=== PATIENT | female | born 1945 | race Caucasian/White ===

== ENCOUNTER 2016-07-19 09:10 | Outpatient (CLI) | payer MEDICARE | END 2016-07-19 09:11 | disposition home or self-care (01) | DX: Z12.31 Encounter for screening mammogram for malignant neoplasm of breast (principal); Z85.3 Personal history of malignant neoplasm of breast; Z90.12 Acquired absence of left breast and nipple ==

== ENCOUNTER 2016-07-19 09:11 | Outpatient (CLI) | payer MEDICARE | END 2016-07-19 09:12 | disposition home or self-care (01) | DX: Z13.820 Encounter for screening for osteoporosis (principal); M81.0 Age-related osteoporosis without current pathological fracture; N95.8 Other specified menopausal and perimenopausal disorders ==

== ENCOUNTER 2017-07-24 16:11 | Outpatient (CLI) | payer MEDICARE ==
--- NOTE | 2017-07-25 13:42 | Mammography Report ---
SCREENING MAMMOGRAM: 07/24/2017 CLINICAL INDICATION: A 71-year-old with personal history of left breast cancer , status post mastectomy, history of late childbearing, for screening. TECHNIQUE: Right CC and MLO views were obtained. COMPARISON: 06/2016, 05/2015/, 05/2014, 05/2013 FINDINGS: The right breast again demonstrates scattered fibroglandular densities. No suspicious masses, clustered microcalcifications, or regions of architectural distortion are identified. IMPRESSION: NEGATIVE EXAMINATION. RECOMMENDATION: Routine annual screening unless otherwise clinically indicated. BIRADS CATEGORY 1-NEGATIVE. STANDARD QUALIFYING STATEMENTS: 1. This examination was reviewed with the aid of Computer-Aided Detection (CAD) . 2. A negative or benign imaging report should not delay biopsy if clinically suspicious findings are present. Consider surgical consultation if warranted. More than 5 % of cancers are not identified by imaging. 3. Dense breasts may obscure an underlying neoplasm. TD: 07/25/2017 13:41 SIRISHA
== END 2017-07-24 16:12 | disposition home or self-care (01) ==
LOC: DI 16:11
PROVIDERS: ATTEND Internal Medicine
DX: Z12.31 Encounter for screening mammogram for malignant neoplasm of breast (principal); Z85.3 Personal history of malignant neoplasm of breast; Z90.12 Acquired absence of left breast and nipple

== ENCOUNTER 2018-01-27 11:44 | Outpatient (CLI) | payer MEDICARE ==
--- NOTE | 2018-01-27 14:42 | XRAY Report ---
Reason: LEFT HIP PAIN,OSTEOPOROSIS Procedure Date: 01/27/2018 Accession Number: [id number] / [id number] Procedure: XR - Hips 2V BILAT CPT Code: FULL RESULT: EXAM: BILATERAL HIP RADIOGRAPHY EXAM DATE: 01/27/2018 12:02 PM. CLINICAL HISTORY: Left hip pain, osteoporosis. COMPARISON: None. TECHNIQUE: 2 views each. FINDINGS: Bones: Normal. No fractures or bone lesion. Right Hip: Normal. No dislocation. Medial greater than superior hip joint space narrowing, moderate. Left Hip: Normal. No dislocation. Medial greater than superior hip joint space narrowing, moderate. Soft Tissues: Normal. No soft tissue swelling. IMPRESSION: Bilateral moderate degenerative joint disease right greater than left. RADIA
== END 2018-01-27 11:45 | disposition home or self-care (01) ==
LOC: DI 11:44
PROVIDERS: ATTEND Nurse Practitioner Family
DX: M16.0 Bilateral primary osteoarthritis of hip (principal)
CPT/HCPCS: 73521

== ENCOUNTER 2018-06-19 10:43 | Outpatient (CLI) | payer MEDICARE ==
--- NOTE | 2018-06-19 13:22 | XRAY Report ---
Reason: CLOSED FRACTRE PROX HUMERUS,GREATER TRUBEROSIT LT Procedure Date: 06/19/2018 Accession Number: [id number] / [id number] Procedure: XR - Shoulder 2 View LT CPT Code: FULL RESULT: EXAM: LEFT SHOULDER RADIOGRAPHY EXAM DATE: 06/19/2018 11:12 AM. CLINICAL HISTORY: Left shoulder pain. COMPARISON: XR SHOULDER LEFT COMPLETE 06/11/2018 9:06 PM. TECHNIQUE: 2 views. FINDINGS: Bones: As before, mildly displaced greater tuberosity fracture of the humeral head is unchanged. The remainder osseous structures are intact. Joints: Minimal degenerative changes are seen. Normal alignment. Soft tissues: The visualized hemithorax is unremarkable. No soft tissue swelling. IMPRESSION: No interval change in mildly displaced greater tuberosity fracture of the humeral head. RADIA
== END 2018-06-19 10:44 | disposition home or self-care (01) ==
LOC: DI 10:43
PROVIDERS: ATTEND Internal Medicine
DX: S42.255D Nondisplaced fracture of greater tuberosity of left humerus, subsequent encounter for fracture with routine healing (principal)

== ENCOUNTER 2018-09-29 10:10 | Outpatient (CLI) | payer MEDICARE ==
--- NOTE | 2018-09-29 12:20 | Mammography Report ---
Reason: ROUTINE MAMMOGRAM Procedure Date: 09/29/2018 Accession Number: [id number] / [id number] Procedure: [facility] - Screening Mammo Right w/Waqas CPT Code: FULL RESULT: EXAM: Screening Mammo Right w/Waqas DATE: 09/29/2018 10:49 AM CLINICAL HISTORY: Status post left mastectomy for routine right screening TECHNIQUE: (R) - Right CC and MLO views were obtained. COMPARISON: 05/30/2014, 06/07/2015, 07/19/2016 and 07/24/2017 FINDINGS: There is scattered fibroglandular density in the right breast. No significant interval change. There are no suspicious masses, calcifications, or areas of distortion. IMPRESSION: Negative examination. BI-RADS category 1. Right breast. RECOMMENDATION: (ANNUAL) - Recommend routine annual screening mammography. BI-RADS CATEGORY: (1) - Negative. STANDARD QUALIFYING STATEMENTS: 1. This examination was not reviewed with the aid of Computer-Aided Detection (CAD). 2. A negative or benign imaging report should not preclude biopsy if clinically suspicious findings are present. 3. Dense breasts may obscure an underlying neoplasm. 4. This examination was reviewed with the aid of 3D breast imaging (tomosynthesis).
== END 2018-09-29 10:11 | disposition home or self-care (01) ==
LOC: DI 10:10
DX: Z12.31 Encounter for screening mammogram for malignant neoplasm of breast (principal); Z90.12 Acquired absence of left breast and nipple
CPT/HCPCS: 77063

== ENCOUNTER 2019-09-22 11:30 | Outpatient (CLI) | payer MEDICARE ==
--- NOTE | 2019-09-22 13:56 | XRAY Report ---
PROCEDURE: Knee 3 View RT INDICATIONS: PAIN IN RIGHT KNEE TECHNIQUE: 3 views of the right knee(s) were acquired. COMPARISON: None. FINDINGS: Bones: No fractures or dislocations but there is a mild to moderate degree of medial compartment linden nt space narrowing on the frontal view, and moderately severe lateral facet patellofemoral joint oste oarthritic joint space narrowing also.. No suspicious bony lesions. Soft tissues: No joint effusion. No suspicious soft tissue calcifications. IMPRESSION: No trauma found. Medial compartment mild to moderate degenerative knee joint osteoarthri tis, moderately severe lateral facet patellofemoral joint knee joint osteoarthritis. Reviewed by: Tito Swartz MD on 09/22/2019 1:55 PM PDT Approved by: Tito Swartz MD on 09/22/2019 1:55 PM PDT Station ID: [id number]
== END 2019-09-22 11:31 | disposition home or self-care (01) ==
LOC: DI 11:30
PROVIDERS: ATTEND Nurse Practitioner Family
DX: M17.11 Unilateral primary osteoarthritis, right knee (principal)

== ENCOUNTER 2020-06-08 09:28 | Outpatient (CLI) | payer MEDICARE ==
[2020-06-08 16:23] LABS: BASOPHILS # (AUTO) 0.1 10^3/uL (0.0-0.1); EOSINOPHILS # (AUTO) 0.2 10^3/uL (0.0-0.7); HCT - HEMATOCRIT 43.2 % (37.0-47.0); HGB - HEMOGLOBIN 13.6 g/dL (12.0-16.0); LYMPHOCYTES # (AUTO) 1.6 10^3/uL (1.5-3.5); LYMPHOCYTES % (AUTO) 29.5 %; MEAN CORPUSCULAR HEMOGLOBIN 31.7 pg (27.0-31.0); MEAN CORPUSCULAR HGB CONC 31.5 g/dL (32.0-36.0); MEAN CORPUSCULAR VOLUME 100.7 fL (81.0-99.0); MEAN PLATELET VOLUME 10.7 fL (7.9-10.8); MONOCYTES # (AUTO) 0.4 10^3/uL (0.0-1.0); MONOCYTES % (AUTO) 7.2 %; NEUTROPHILS # (AUTO) 3.1 10^3/uL (1.5-6.6); NEUTROPHILS % (AUTO) 58.9 %; PLT - PLATELET COUNT 288 10^3/uL (130-450); RED BLOOD COUNT 4.29 10^6/uL (4.20-5.40); RED CELL DISTRIBUTION WIDTH 13.5 % (12.0-15.0); WHITE BLOOD COUNT 5.3 x10^3/uL (4.8-10.8)
[2020-06-08 16:59] LABS: ALBUMIN 4.1 g/dL (3.2-5.5); ALBUMIN/GLOBULIN RATIO 1.4 (1.0-2.2); BILIRUBIN,TOTAL 0.8 mg/dL (0.2-1.0); CALCIUM 9.4 mg/dL (8.5-10.3); CREATININE 0.9 mg/dL (0.4-1.0); MAGNESIUM 2.2 mg/dL (1.7-2.8); POTASSIUM 4.2 mmol/L (3.5-5.0)
[2020-06-08 17:05] LABS: THYROID STIMULATING HORMONE 1.85 uIU/mL (0.34-5.60)
[2020-06-08 17:07] LABS: FREE T4 (FREE THYROXINE) 0.94 ng/dL (0.58-1.64)
[2020-06-08 17:16] LABS: FOLATE 19.45 ng/mL (5.90 - >24.8)
== END 2020-06-08 09:29 | disposition home or self-care (01) ==
LOC: LAB.S 09:28
PROVIDERS: ATTEND Registered Nurse
DX: R00.2 Palpitations (principal); Z13.228 Encounter for screening for other metabolic disorders
CPT/HCPCS: 36415; 80053; 82306; 82607; 82746; 83735; 84439; 84443; 85025

== ENCOUNTER 2020-06-13 13:02 | Outpatient (CLI) | payer MEDICARE ==
--- NOTE | 2020-06-14 15:07 | Mammography Report ---
UNILATERAL RIGHT DIGITAL SCREENING MAMMOGRAM 3D/2D: 06/13/2020 CLINICAL: Routine screening. Comparison is made to exams dated: 09/29/2018 mammogram, 07/24/2017 mammogram, and 07/19/2016 mammogram - [facility]. There are scattered fibroglandular elements in right breast. No significant masses, calcifications, or other findings are seen in the breast. There has been no significant interval change. IMPRESSION: NEGATIVE There is no mammographic evidence of malignancy. A 1 year screening mammogram is recommended. This exam was interpreted at Station ID: [id number]. NOTE: For mammograms, a report in lay terms will be sent to the patient. Approximately 15% of breast malignancies will not be visualized mammographically. In the management of a palpable breast mass, a negative mammogram must not discourage biopsy of a clinically suspicious lesion. Electronically Signed By: Shubham Nichols M.D. ar/[email or web address]:06/13/2020 15:21:16 ACR BI-RADS Category 1: Negative 3341F PARENCHYMAL PATTERN: (A) - The breast(s) demonstrate(s) scattered fibroglandular densities. BI-RADS CATEGORY: (1) - 1 RECOMMENDATION: (ANNUAL) - Recommend routine annual screening mammography. [id number] 1 year screening LATERALITY: (B)
== END 2020-06-13 13:03 | disposition home or self-care (01) ==
LOC: DI 13:02
PROVIDERS: ATTEND Nurse Practitioner Family
DX: Z12.31 Encounter for screening mammogram for malignant neoplasm of breast (principal)

== ENCOUNTER 2020-06-13 13:05 | Outpatient (CLI) | payer MEDICARE ==
--- NOTE | 2020-06-13 16:06 | XRAY Report ---
PROCEDURE: Hip w/Pelvis 2-3V RT INDICATIONS: LOW BACK PAIN, PAIN IN RIGHT HIP TECHNIQUE: AP pelvis with lateral view(s) of the right hip(s). COMPARISON: None. FINDINGS: Bones: No fractures or dislocations. Pelvic ring appears intact. No suspicious bony lesions. Mode rate bilateral degenerative narrowing of the hip joints are noted. Paratracheal or osteophytes are pr esent. Degenerative changes are present within the lower lumbar spine.. Soft tissues: The visualized bowel gas pattern is normal. No suspicious soft tissue calcifications. Calcifications noted within the middle pelvis suggestive of uterine fibroid. IMPRESSION: Moderate bilateral hip arthritis as well as degenerative changes in the lumbar spine. Reviewed by: Marcia Pop MD on 06/13/2020 4:04 PM PDT Approved by: Marcia Pop MD on 06/13/2020 4:04 PM PDT Station ID: [id number]
--- NOTE | 2020-06-13 17:08 | XRAY Report ---
PROCEDURE: Lumbar Spine 2 View INDICATIONS: LOW BACK PAIN, PAIN IN RIGHT HIP TECHNIQUE: 2 views of the lumbar spine were acquired. COMPARISON: None. FINDINGS: Bones: 5 [id number] vertebrae are present. There is mild rightward curvature of the lumbar spi ne with apex at L2. There is grade 1 retrolisthesis of L2 on L3, L3 on L4. Multilevel moderate to sev ere disc space narrowing is present throughout the lumbar spine. Severe foraminal narrowing is noted at L2-3, L5-S1. Multilevel uncovertebral hypertrophy are present. No vertebral body compression fract ures. No suspicious bony lesions. Soft tissues: Overlying bowel gas pattern is normal. No suspicious soft tissue calcifications. IMPRESSION: Degenerative changes most notable at L2-3 and L5-S1 as above. As clinically indicated, M RI may be obtained for additional evaluation. Reviewed by: Marcia Pop MD on 06/13/2020 5:07 PM PDT Approved by: Marcia Pop MD on 06/13/2020 5:07 PM PDT Station ID: [id number]
== END 2020-06-13 13:06 | disposition home or self-care (01) ==
LOC: DI 13:05
PROVIDERS: ATTEND Nurse Practitioner Family
DX: M54.5 Low back pain (principal); M47.817 Spondylosis without myelopathy or radiculopathy, lumbosacral region; M25.551 Pain in right hip; M16.0 Bilateral primary osteoarthritis of hip

== ENCOUNTER 2021-12-17 15:07 | Outpatient (CLI) | payer MEDICARE | END 2021-12-17 15:08 | disposition home or self-care (01) | LOC: LAB 15:07 | PROVIDERS: ATTEND Nurse Practitioner Family | DX: R07.9 Chest pain, unspecified (principal) | CPT/HCPCS: 93005 ==

== ENCOUNTER 2022-04-26 11:30 | Outpatient (CLI) | payer MEDICARE ==
--- NOTE | 2022-04-29 10:17 | Mammography Report ---
UNILATERAL RIGHT DIGITAL SCREENING MAMMOGRAM 3D/2D: 04/26/2022 CLINICAL: Routine screening. Personal history of left breast cancer. Comparison is made to exams dated: 06/13/2020 mammogram, 09/29/2018 mammogram, 07/24/2017 mammogram, 06/30 mammogram, 06/07/2015 mammogram, and 05/30/2014 mammogram - [facility]. There are scattered areas of fibroglandular density in the right breast (category b / 25%-50% glandul ar tissue). No significant masses, calcifications, or other findings are seen in the breast. There has been no significant interval change. IMPRESSION: NEGATIVE There is no mammographic evidence of malignancy. A 1 year screening mammogram is recommended. This exam was interpreted at Station ID: [id number]. NOTE: For mammograms, a report in lay terms will be sent to the patient. Approximately 15% of breast malignancies will not be visualized mammographically. In the management of a palpable breast mass, a negative mammogram must not discourage biopsy of a clinically suspicious lesion. Electronically Signed By: Collins [email or web address]:04/26/2022 12:28:06 ACR BI-RADS Category 1: Negative 3341F PARENCHYMAL PATTERN: (A) - The breast(s) demonstrate(s) scattered fibroglandular densities. BI-RADS CATEGORY: (1) - 1 RECOMMENDATION: (ANNUAL) - Recommend routine annual screening mammography. [id number] 1 year screening LATERALITY: (B)
== END 2022-04-26 11:31 | disposition home or self-care (01) ==
LOC: DI 11:30
PROVIDERS: ATTEND Nurse Practitioner Family
DX: Z12.31 Encounter for screening mammogram for malignant neoplasm of breast (principal); Z85.3 Personal history of malignant neoplasm of breast

== ENCOUNTER 2023-01-13 15:15 | Outpatient (CLI) | payer MEDICARE ==
--- NOTE | 2023-01-13 19:54 | XRAY Report ---
PROCEDURE: Hip w/Pelvis 2-3V LT INDICATIONS: HIP TECHNIQUE: AP pelvis with lateral view of the left hip. COMPARISON: Right hip radiographs 06/13/2020 FINDINGS: Bones: No acute fractures or dislocations. No suspicious bony lesions. Moderate to severe degener ative changes are seen in the hips bilaterally with joint space narrowing, subchondral sclerosis, sub chondral cystic changes, marginal osteophytes. Degenerative changes also noted in the pubic symphysis , sacroiliac joints, and included lumbar spine. Soft tissues: Calcification in the central pelvis is most likely a degenerating uterine fibroid. IMPRESSION: Moderate to severe bilateral hip osteoarthrosis. Degenerative changes also noted in the pubic symphys is, sacroiliac joints, and lumbar spine. Reviewed by: Shubham Nichols MD on 01/13/2023 7:53 PM PDT Approved by: Shubham Nichols MD on 01/13/2023 7:53 PM PDT Station ID: [id number]
--- NOTE | 2023-01-13 19:57 | XRAY Report ---
PROCEDURE: Knee 3 View RT INDICATIONS: LEFT HIP AND RIGHT KNEE PAIN TECHNIQUE: 3 views of the right knee were acquired. COMPARISON: Right knee radiographs 09/22/2019 FINDINGS: Bones: No acute fractures or dislocations. No suspicious bony lesions. There is mild narrowing of the medial femorotibial compartment joint spaces with tiny marginal osteophytes. Tiny osteophytes al so seen at the lateral compartment. There is moderate to severe narrowing of the patellofemoral joint space with subchondral sclerosis and marginal osteophyte formation. Soft tissues: No knee joint effusion. Atherosclerotic calcifications are present. IMPRESSION: Moderate facet arthrosis, most notably in the patellofemoral compartment. Findings do not appear sign ificantly changed when compared to 09/22/2019. Reviewed by: Shubham Nichols MD on 01/13/2023 7:55 PM PDT Approved by: Shubham Nichols MD on 01/13/2023 7:55 PM PDT Station ID: [id number]
== END 2023-01-13 15:16 | disposition home or self-care (01) ==
LOC: DI 15:15
PROVIDERS: ATTEND Nurse Practitioner Family
DX: M16.0 Bilateral primary osteoarthritis of hip (principal); M47.898 Other spondylosis, sacral and sacrococcygeal region; M47.816 Spondylosis without myelopathy or radiculopathy, lumbar region; M17.11 Unilateral primary osteoarthritis, right knee

== ENCOUNTER 2023-06-11 08:00 | Outpatient (CLI) | payer MEDICARE | END 2023-06-11 08:01 | disposition home or self-care (01) | LOC: LAB.S 08:00 | PROVIDERS: ATTEND Registered Nurse | DX: R09.89 Other specified symptoms and signs involving the circulatory and respiratory systems (principal) ==

== ENCOUNTER 2023-06-11 08:00 | Outpatient (CLI) | payer MEDICARE ==
--- NOTE | 2023-06-11 12:09 | XRAY Report ---
PROCEDURE: Chest 2V INDICATIONS: ACUTE COUGH TECHNIQUE: 2 views of the chest were acquired. COMPARISON: None. FINDINGS: Surgical changes and devices: Surgical clips in the left axilla. Lungs and pleura: No pleural effusions or pneumothorax. Hyperexpansion of the lungs with flattening of the diaphragm suggestive of chronic obstructive pulmonary disease. Lungs are clear. Mediastinum: Mediastinal contours appear normal. Heart size is normal. Bones and chest wall: No suspicious bony lesions. Probable moderate-sized hiatal hernia. Calcificati on of the abdominal aorta. Moderate multilevel degenerative changes of the spine. IMPRESSION: 1.No acute cardiopulmonary process. 2.Hyperexpansion of the lungs with flattening of the diaphragm suggestive of chronic obstructive pulm onary disease. 3.Probable moderate-sized hiatal hernia. Reviewed by: Surinder Luz MD on 06/11/2023 12:08 PM PDT Approved by: Surinder Luz MD on 06/11/2023 12:08 PM PDT Station ID: [id number]
== END 2023-06-11 23:59 | disposition home or self-care (01) ==
LOC: DI.S 08:00
PROVIDERS: ATTEND Registered Nurse
DX: R05.1 Acute cough (principal); R09.89 Other specified symptoms and signs involving the circulatory and respiratory systems